=== PATIENT | female | born 1960 | race African-American/Black ===

== ENCOUNTER 2017-03-21 07:47 | Inpatient (IN) | payer MEDICARE ==
[~2017-03-21] VITALS: Ht 167.6 cm; Wt 87.5 kg
[2017-03-21] MEDS ORDERED: SODIUM CHLORIDE 0.9% 1,000ML IVBOLUS ONE ×2 (08:30→13:00)
[2017-03-21] MEDS ORDERED: ONDANSETRON 2MG/ML, 2ML IVPush ONE (08:30)
[2017-03-21] MEDS ORDERED: ONDANSETRON 2MG/ML, 2ML ONE (08:49)
[2017-03-21] MEDS ORDERED: HYDROmorphone 1 MG/ML, 1ML ONE ×2 (08:50→12:26)
[2017-03-21 09:10] LABS: BLOOD UREA NITROGEN 12 mg/dL (7-18)
[2017-03-21 09:14] LABS: ASPARTATE AMINO TRANSFERASE 13 U/L (15-37)
[2017-03-21] MEDS: HYDROmorphone 1 MG/ML, 1ML IVPush PRN ×2 (09:32→12:42)
[2017-03-21] MEDS ORDERED: OMNIPAQUE 350 MG/ML, 100ML BOTTLE ONE (09:59)
[2017-03-21] MEDS ORDERED: SODIUM CHLORIDE 0.9% 1,000 ML IV ONE (12:42)
[2017-03-21] MEDS ORDERED: ASPI-515 PO (12:46)
[2017-03-21] MEDS ORDERED: AMLO10TA2 PO (12:46)
[2017-03-21] MEDS ORDERED: SODIUM CHLORIDE FLUSH 10ML SYR IVF PRN (13:00)
[2017-03-21] MEDS ORDERED: PROMETHAZINE 25MG TABLET PO PRN (14:30)
[2017-03-21] MEDS ORDERED: GOLYTELY 4,000ML ORAL.SOL PO ONE (14:30)
[2017-03-21 15:52] VITALS: BP 112/77
[2017-03-21] MEDS: POTASSIUM CHLORIDE 10 MEQ in SODIUM CHLORIDE 0.9% 1,000 ML IV SCH (16:57)
[2017-03-21 17:02] VITALS: BP 112/77
[2017-03-21 20:38] VITALS: BP 136/86
[2017-03-21] MEDS ORDERED: ONDANSETRON 2MG/ML, 2ML IVPush PRN (21:00)
[2017-03-21] MEDS ORDERED: MORPHINE SULFATE 4 MG/ML, 1ML ONE (22:19)
[2017-03-21] MEDS: morphine SULFATE 10 MG/ML, 1ML IVPush PRN (22:24)
[2017-03-22] VITALS (9 sets, daily range): BP systolic 104–155; BP diastolic 67–86
[2017-03-22] MEDS: POTASSIUM CHLORIDE 10 MEQ in SODIUM CHLORIDE 0.9% 1,000 ML IV SCH ×2 (02:00→15:07)
[2017-03-22 05:23] LABS: BLOOD UREA NITROGEN 4 mg/dL (7-18)
[2017-03-22] MEDS: AMLODIPINE 5 MG TABLET PO SCH (09:20)
[2017-03-22] MEDS ORDERED: MORPHINE SULFATE 4 MG/ML, 1ML ONE (09:30)
[2017-03-22] MEDS: morphine SULFATE 10 MG/ML, 1ML IVPush PRN (09:36)
[2017-03-22] MEDS ORDERED: FENTANYL PF 100 MCG/2ML ONE (10:52)
[2017-03-22] MEDS ORDERED: PROPOFOL 10 MG/ML, 50ML ONE (11:03)
[2017-03-22] MEDS ORDERED: PROPOFOL 10 MG/ML, 20ML ONE (11:03)
[2017-03-22] MEDS ORDERED: DIPHENHYDRAMINE 25 MG CAPSULE PO PRN (20:30)
[2017-03-23 02:00] VITALS: BP 140/83
[2017-03-23] MEDS: POTASSIUM CHLORIDE 10 MEQ in SODIUM CHLORIDE 0.9% 1,000 ML IV SCH (04:22)
[2017-03-23 07:41] VITALS: BP 135/84
[2017-03-23] MEDS: AMLODIPINE 5 MG TABLET PO SCH (09:49)
== END 2017-03-23 10:15 | disposition home or self-care (01) | DRG 393 ==
LOC: ED 10:19 → EDIP 12:42 → 4WST 14:57 → DCLOUNGE 03-23 10:05
PROVIDERS: ADMIT Internal Medicine; ATTEND Internal Medicine
PROC: 0DJD8ZZ Inspection of Lower Intestinal Tract, Via Natural or Artificial Opening Endoscopic (ICD-10-PCS; principal; 2017-03-22 10:30)
DX: K64.1 Second degree hemorrhoids (principal); K57.91 Diverticulosis of intestine, part unspecified, without perforation or abscess with bleeding; D62 Acute posthemorrhagic anemia; M33.20 Polymyositis, organ involvement unspecified; K86.2 Cyst of pancreas; K64.4 Residual hemorrhoidal skin tags; R19.7 Diarrhea, unspecified; E66.9 Obesity, unspecified; I10 Essential (primary) hypertension; M79.7 Fibromyalgia; Z41.1 Encounter for cosmetic surgery; Z68.31 Body mass index [BMI] 31.0-31.9, adult
CPT/HCPCS: 36415; 74177; 80048; 80053; 81001; 83690; 83735; 85014; 85018; 85025; 85610; 85730; 86850; 86900; 87086; 87324; 89055; 93005; 93306; 96361; 96374; 96375; 96376; J1170; J2405; J2704; J3010; J3480; Q0169; Q9967; J2270; J7030; Q0163

== ENCOUNTER 2019-08-05 19:20 | Emergency (ER) | payer MEDICARE ==
[~2019-08-05] VITALS: Ht 167.6 cm; Wt 87.2 kg
[~2019-08-05 19:20] MED LIST: AMLO10TA8 PO; ASPI-515 PO
[2019-08-05] MEDS ORDERED: AMLO10TA8 PO (19:59)
--- NOTE | 2019-08-05 20:00 | NUR ---
PT HERE WITH C/O ABDOMINAL PAIN, STATES STARTED 3 HOURS AGO. NAUSEA AND DIARRHEA BUT NO VOMITTING. PT STATES RECENT TRAVEL WITHIN THE PAST 3 DAYS. DIFFUSE ABDOMINAL PAIN AND CRAMPING. PT AAO X 4, NAD, ROOM AIR, CALL LIGHT WITHIN REACH. PT DRESSED IN GOWN AND ATTACHED TO MONITOR. MD AT BEDSIDE FOR EXAM. MED REC COMPLETED.
--- NOTE | 2019-08-05 20:11 | NUR ---
PT TO RADIOLOGY.
[2019-08-05] MEDS ORDERED: ONDANSETRON ODT 4 MG ONE (20:20)
[2019-08-05] MEDS ORDERED: OXYcodone/APAP 5/325MG TABLET ONE (20:21)
--- NOTE | 2019-08-05 20:27 | NUR ---
PT MEDICATED PER ORDER. PT BACK FROM RADIOLOGY.
[2019-08-05] MEDS ORDERED: ONDANSETRON ODT 4 MG PO ONE (20:30)
[2019-08-05] MEDS ORDERED: OXYcodone/APAP 5/325MG TABLET PO ONE (20:30)
--- NOTE | 2019-08-05 20:47 | NUR ---
ALL RESULTS BACK AT THIS TIME, CHART UP FOR RECHECK.
--- NOTE | 2019-08-05 21:09 | NUR ---
REPORT GIVEN TO MARIALUISA PONCE. CARE TRANSFERRED.
--- NOTE | 2019-08-05 21:19 | NUR ---
REPORT FROM MARIALUISA MENDOZA. PT RESTING IN ROOM WITH EYES CLOSED. 2LNC PLACED FOR SLEEPING RA SPO2 84%. PT REQUESTING TO SPEAK WITH ANALYSIS REPORTING DEVELOPER. ANALYSIS REPORTING DEVELOPER ANMOL NOTIFIED. NO OTHER NEEDS AT THIS TIME. ALL RESULTS BACK AT THIS TIME. CHART UP FOR RECHECK.
--- NOTE | 2019-08-05 21:41 | NUR ---
pt resting in room with lights dimmed, talking on phone. vss. no needs expressed. per pt, manuel resolved wtih help from supervisor counseling and guidance Bethany. awaiting recheck.
--- NOTE | 2019-08-05 21:54 | NUR ---
RECEIVED REPORT FROM ROSARIO ELAM. ASSUMING CARE AT THIS TIME.
--- NOTE | 2019-08-05 21:55 | NUR ---
report to MARIALUISA Raya to assume care at this time.
[2019-08-05 23:08] VITALS: BP 141/72
== END 2019-08-05 23:11 | disposition home or self-care (01) ==
LOC: ED 22:01
DX: R19.7 Diarrhea, unspecified (principal); R11.2 Nausea with vomiting, unspecified; R10.9 Unspecified abdominal pain; I10 Essential (primary) hypertension
CPT/HCPCS: 74021; 99283; Q0162